=== PATIENT | male | born 1970 | race Caucasian/White ===

== ENCOUNTER → 2017-01-06 | Outpatient (CLI) | payer OTHER | LOC: HEART 5 10:01 | DX: R06.02 Shortness of breath (principal) | CPT/HCPCS: 94010 ==

== ENCOUNTER → 2022-01-17 | Outpatient (CLI) | payer OTHER ==
[~2022-01-17] MED LIST: IBUPROFEN600 MG PO; ROBITUSSIN100 MG/51 PO; TESSALON PERLE100 MG PO
[2022-01-17 09:53] LABS: HEMOGLOBIN 15.8 gm/dl (14.0-17.5); RED BLOOD COUNT 5.09 M/UL (4.20-5.50); WHITE BLOOD COUNT 9.4 K/UL (4.5-11.0)
[2022-01-17 10:15] LABS: BUN/CREATININE RATIO 12 (0-10)
== END ==
LOC: LAB 08:37
PROVIDERS: Physician Assistant
DX: E78.5 Hyperlipidemia, unspecified (principal); E55.9 Vitamin D deficiency, unspecified; R71.8 Other abnormality of red blood cells; R12 Heartburn; R07.89 Other chest pain
CPT/HCPCS: 36415; 71046; 80053; 80061; 82728; 83540; 83550; 85025

== ENCOUNTER → 2022-01-27 | Outpatient (CLI) | payer OTHER | LOC: HEART 5 09:21 | DX: J44.9 Chronic obstructive pulmonary disease, unspecified (principal) | CPT/HCPCS: 94010 ==

== ENCOUNTER 2022-02-16 22:14 | Emergency (ER) | payer OTHER | END 2022-02-17 00:15 | disposition home or self-care (01) | LOC: ER1 22:14 | DX: R10.9 Unspecified abdominal pain (principal); R10.819 Abdominal tenderness, unspecified site; F17.200 Nicotine dependence, unspecified, uncomplicated | CPT/HCPCS: 99283 ==